=== PATIENT | male | born 1960 | race Caucasian/White ===

== ENCOUNTER → 2024-02-15 12:29 | Outpatient (REF) | payer BC, SELFPAY | LOC: RAD 12:29 | PROVIDERS: ATTENDING PHYSICIAN Physician Assistant; FAMILY PHYSICIAN Family Medicine | DX: N50.89 Other specified disorders of the male genital organs (principal) | CPT/HCPCS: 76870; 93976 ==

== ENCOUNTER 2024-05-31 06:13 | Day surgery (SDC) | payer BC, SELFPAY ==
[2024-05-03 13:52] VITALS: BMI 33.7
[2024-05-03 13:59] LABS: Hematocrit 46.9 % (39.0-52.0); Hemoglobin 15.3 g/dL (13.0-18.0); Mean Corp Hgb Conc. 32.6 g/dL (33.0-37.0); Mean Corpuscular Hgb 31.6 pg (27.0-31.0); Mean Corpuscular Volume 96.9 fL (80.0-94.0); Mean Platelet Volume 10.9 fL (7.4-10.4); Platelet Count 213 10^3/uL (130-400); Red Blood Cell Count 4.84 10^6/uL (4.70-6.10); Red Cell Dist. Width 12.6 % (11.5-14.5); White Blood Cell Count 7.2 10^3/uL (4.8-10.8)
[2024-05-03 14:04] LABS: ALT (SGPT) 19 U/L (0-50); AST (SGOT) 25 U/L (17-59); Albumin 4.7 g/dl (3.5-5.0); Alkaline Phosphatase 69 U/L (38-126); Blood Urea Nitrogen 23 mg/dl (9-20); Calcium 9.5 mg/dl (8.4-10.2); Carbon Dioxide 28 mmol/L (22-30); Chloride 102 mmol/L (98-107); Estimated Creatinine Clearance 90 ml/min; Glucose 96 mg/dl (70-99); Potassium 4.6 mmol/L (3.5-5.1); Sodium 142 mmol/L (135-145); Total Bilirubin 0.9 mg/dl (0.2-1.3); Total Protein 7.1 g/dl (6.3-8.2); eGFR > 60.00
[2024-05-03 15:50] LABS: Glycohemoglobin (HgbA1c) 5.5 % (4.0-5.6)
--- NOTE | 2024-05-18 10:14 | VNURNOTE ---
Patient is scheduled for an elective R CLARI on 05/31/24- he is a same day patient with Dr Angelo. Spoke with patient prior to surgery. Introduced role of [facility] Liaison. Patient reports that he lives with his in a 1 story home.
There are 3 steps to enter.
He has a cane. He will obtain a rolling walker
He had [facility] services after his prior ortho surgeries but was not same day surgery.
PCP is Dr Anand
Discussed [facility] joint protocol and post surgical plans.
Reviewed that he will have [facility] services initially and will then start outpatient PT.
Patient selects [facility] for his home care needs and will go to [facility] for outpatient PT. Scheduled for 06/04.
Patient is in agreement with plan and states that his will be home with him. Advised to bring RW with him day of surgery. Referral placed in [facility].
Plan: [facility] per [facility] joint protocol then outpt PT on 06/04
[2024-05-25 10:21] VITALS: BMI 33.7
[2024-05-31] VITALS (11 sets, daily range): BP systolic 131–157; BP diastolic 67–78; PULSE 58; O2SAT 95
[2024-05-31] MEDS: NORMOSOL-R/PLASMALYTE-A 1000 IV (06:37)
[2024-05-31] MEDS: CELEBREX 200 MG PO (06:37)
[2024-05-31] MEDS: TYLENOL 650 MG PO (06:37)
--- NOTE | 2024-05-31 06:43 | W.DS.TRANS ---
Addendum entered and electronically signed by Jazmine Coto PA-C 06/01/24 11:43:
Eliquis 2.5mg bid dosing in lieu of ASA due to hx of clot-Rx was provided pre-op by [facility]
Original Note:
DC Summary - Mobile Manager
-
Discharge Instructions:
Sleep Apnea Risk Low
Discharge Diagnosis/Procedures R TKA Dr. Angelo 05/31/24
Diet As tolerated
Activity With Walker
Driving Restrictions No driving
Bathing Restrictions OK to Shower
Instructions:
Stand-Alone Forms: SDS Total Hip and Knee D/C
Changes to Home Medications: Yes
Discharge Medications:
DC Medications w/original date entered in [employer]
mupirocin 2 % topical ointment 1 applic topical BID 05/25/24
acetaminophen 325 mg tablet (Tylenol) 650 mg (2 x 325 mg) PO QID #1 tab 05/31/24
aspirin 325 mg tablet 325 mg PO DAILY blood clot prevention #1 tab 05/31/24
celecoxib 100 mg capsule 100 mg PO BID Anti-inflammatory #14 caps 05/31/24
dexamethasone 4 mg tablet 4 mg PO BID inflammation #6 tabs 05/31/24
docusate sodium 100 mg capsule (Colace) 100 mg PO BID stool softner #1 cap 05/31/24
magnesium hydroxide 400 mg/5 mL oral suspension (Milk of Magnesia) 30 ml PO HS PRN Constipation #1 mL 05/31/24
ondansetron 4 mg disintegrating tablet 4 mg PO Q6H PRN n/v #20 tabs 05/31/24
oxycodone 5 mg tablet 5 mg PO Q6H PRN 1 tab moderate pain, 2 tabs severe pain #30 tabs 05/31/24
sennosides 8.6 mg tablet (Senokot) 17.2 mg (2 x 8.6 mg) PO BID laxative #2 tabs 05/31/24
Home Medication Changes
mupirocin 2 % topical ointment 1 applic topical BID 05/25/24
acetaminophen 325 mg tablet (Tylenol) 650 mg (2 x 325 mg) PO QID #1 tab 05/31/24
aspirin 325 mg tablet 325 mg PO DAILY blood clot prevention #1 tab 05/31/24
celecoxib 100 mg capsule 100 mg PO BID Anti-inflammatory #14 caps 05/31/24
dexamethasone 4 mg tablet 4 mg PO BID inflammation #6 tabs 05/31/24
docusate sodium 100 mg capsule (Colace) 100 mg PO BID stool softner #1 cap 05/31/24
magnesium hydroxide 400 mg/5 mL oral suspension (Milk of Magnesia) 30 ml PO HS PRN Constipation #1 mL 05/31/24
ondansetron 4 mg disintegrating tablet 4 mg PO Q6H PRN n/v #20 tabs 05/31/24
oxycodone 5 mg tablet 5 mg PO Q6H PRN 1 tab moderate pain, 2 tabs severe pain #30 tabs 05/31/24
sennosides 8.6 mg tablet (Senokot) 17.2 mg (2 x 8.6 mg) PO BID laxative #2 tabs 05/31/24
Pending Results: No
== END 2024-05-31 12:30 | disposition home or self-care (01) ==
LOC: SDS 06:13
PROVIDERS: ATTENDING PHYSICIAN Orthopaedic Surgery; FAMILY PHYSICIAN Family Medicine
DX: M17.11 Unilateral primary osteoarthritis, right knee (principal)
CPT/HCPCS: 27447; 36415; 73560; 80053; 83036; 85027; 87070; 97162; 97530; C1713; C1776